=== PATIENT | female | born 1935 | race Caucasian/White ===

== ENCOUNTER 2018-05-11 11:27 | Outpatient (CLI) | payer MEDICARE, MEDICAID ==
[~2018-05-11] VITALS: Ht 152 cm; Wt 90.7 kg
[~2018-05-11 11:27] MED LIST: Heparin 2000 units/Ns 1000ml INJ PRN; Lidocaine 1% Plain 30 ml INJ PRN
--- NOTE | 2018-05-11 12:25 | Pre-Procedure Note/Attestation ---
Pre-Procedure Note/Attestation Complete Prior to Procedure Planned Procedure: not applicable Procedure Narrative: PICC Indications for Procedure Pre-Operative Diagnosis: Needs central IV access per oncologist Attestation I attest that I discussed the nature of the procedure; its benefits; risks and complications; and alternatives (and the risks and benefits of such alternatives ), prior to the procedure, with the patient (or the patient's legal guest service representative). I attest that, if there was a reasonable possibility of needing a blood transfusion, the patient (or the patient's legal guest service representative) was given the [facility] standardized written summary, pursuant to the Jarrell Senath Blood Safety Act ([place] Health and Safety Code # 1645, as amended). I attest that I re-evaluated the patient just prior to the surgery and that there has been no change in the patient's H&P, except as documented below: Karlos Pollard MD May 11, 2018 12:25
--- NOTE | 2018-05-11 12:26 | Brief Operative Note ---
Immediate Post Operative Note Operative Note Pre-op Diagnosis: Needs central IV access per oncologist Procedure: PICC Post-op Diagnosis: same as pre-op Surgeon: Nicola POLLARD Anesthesia: local Specimen: none Complications: none Condition: stable Fluids: none Implant(s) used?: No Karlos Pollard MD May 11, 2018 12:26
--- NOTE | 2018-05-12 13:37 | Diagnostic Imaging Report ---
Indications: Needs long-term IV access Technique: Ultrasound confirms patent compressible left basilic vein. Total sterile technique, including sterile probe cover and sterile gel, hat, mask, sterile gown, large sterile drape, and preparation with 2% chlorhexidine utilized. Local anesthesia with 1% lidocaine. Under real-time ultrasound guidance, puncture basilic vein using 21-gauge needle, documented and archived, passage 0.018 guidewire under direct fluoroscopy, which was used to determine appropriate catheter length, exchange for 5 Micronesian peel-away sheath. 5 Micronesian Bard dual-lumen power PICC cut to 47 cm. It was inserted through the peel-away sheath. Peel-away sheath and guidewire removed. Catheter fixed to the skin. Both catheter ports aspirated and flushed. Patient tolerated procedure well, without immediate complication. Digital radiograph documents satisfactory catheter tip position, at the cavoatrial junction. Some manipulation was required to advance the catheter and wire through the left innominate vein Total fluoroscopy time 5.4 minutes. Total dose area product 180 dGycm2 Total number of images: 1 Impression: Successful placement of left arm PICC under sonographic and fluoroscopic guidance, as described above.
== END 2018-05-11 13:27 | disposition home or self-care (01) ==
LOC: RAD 11:27
DX: Z45.2 Encounter for adjustment and management of vascular access device (principal)
CPT/HCPCS: 36569; 76937; J1644; J2001

== ENCOUNTER → 2018-07-09 | Outpatient (CLI) | payer MEDICARE, MEDICAID ==
[~2018-07-09] VITALS: Ht 149 cm; Wt 88.5 kg
[~2018-07-09] MED LIST changes: +Heparin 2000 units/Ns 1000ml INJ ONE; -Heparin 2000 units/Ns 1000ml INJ PRN; +Lidocaine 1% Plain 30 ml INJ ONE; -Lidocaine 1% Plain 30 ml INJ PRN
--- NOTE | 2018-07-09 15:36 | Diagnostic Imaging Report ---
Indication: terminal supervisor venous access Findings: After the indications, procedure, risks, complications, and alternatives of the procedure were explained, written informed consent was obtained. The left upper extremity was prepped with alcohol. All elements of maximal sterile barrier technique were followed including usage of a cap, mask, sterile gown, sterile gloves, hand hygiene and a large sterile sheet. Sonographic evaluation of the upper extremity was performed demonstrating a patent and compressible basilic vein. Access was obtained under real-time ultrasound guidance (with utilization of sterile gel and sterile probe cover) and digital image was saved and archived. An .018 wire was introduced. Needle exchanged for a 5 Ukrainian peel-away sheath. Measurements were obtained. A 5 Ukrainian dual-lumen Power PICC line catheter was cut to 48 cm and introduced over the wire. Peel-away sheath and wire were removed.Catheter was secured to the skin using 2-0 Prolene suture. Both ports aspirate and flush easily. Fluoroscopic images show distal tip in the superior vena cava. Fluoroscopic time 40 seconds Impression: Successful placement of an upper extremity PICC line catheter
== END | disposition home or self-care (01) ==
LOC: RAD 10:02
DX: Z45.2 Encounter for adjustment and management of vascular access device (principal); T82.898A Other specified complication of vascular prosthetic devices, implants and grafts, initial encounter
CPT/HCPCS: 36569; 76937; J1644; J2001